=== PATIENT | male | born 2005 | race Two or more races ===

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

== ENCOUNTER 2025-05-04 23:28 | Emergency (ER) | payer BC ==
[~2025-05-04] VITALS: Ht 188 cm; Wt 93.1 kg
[2025-05-05] MEDS ORDERED: LET TOPICAL SOLN 5 ML TOP ONE
[2025-05-05] MEDS ORDERED: IBUP-1456 PO (00:21)
--- NOTE | 2025-05-05 00:21 | ED.PDOC ---
HPI Comments PT CAME TO THE ER WITH CC OF LEFT EYEBROW 1/2 IN LACERATION, BLEEDING WELL CONTROLLED, PT IS A&OX4 RR EVEN AND REGULAR NO DISTRESS NOTED AT THIS TIME. PT DENIES N/V/D, PAIN, VISION CHANGES, CP, OR SOB Chief Complaint: Laceration Time Seen by MD: 23:34 Reviewed Notes: Nurses Notes, Medications, Allergies Home Meds Active Scripts Ibuprofen (Ibuprofen) 800 Mg Tab, 800 MG PO Q8HP PRN for 7 Days, #21 TAB Prov:ROSANA CORDERO DIAL MAKER 05/05/25 Information Source: Patient Mode of Arrival: Ambulatory Complexity: Simple Laceration Length (cm): 3 Past Medical History PAST MEDICAL HISTORY: Denies Surgical History: Denies all surgeries Family History Family History: Unknown Social History Smoker: Non-Smoker Alcohol: Denies ETOH Use Drugs: Denies Drug Use All Other Systems: Reviewed and Negative (SEE HPI) Physical Exam General Appearance: No Apparent Distress, Normal HEENT: Head (NO TENDERNESS OR CREPITUS OVER BRIDGE OF NOSE OR LEFT PERIORBITAL ASPECT. NO NOTED EDEMA OR ECCHYMOSIS), Pharynx Normal, TMs Normal Neck: Full Range of Motion, Non-Tender Respiratory: Lungs Clear, No Respiratory Distress, Normal Breath Sounds Cardiovascular: No Edema, No JVD, No Murmur, No Gallop, Normal Peripheral Pulses, Regular Rate/Rhythm Breast Exam: Deferred Gastrointestinal: Non Tender, Soft Genitalia: Deferred Pelvic: Deferred Rectal: Deferred Extremities: Normal capillary refill, Normal range of motion Musculoskeletal : Apperance: Normal Neurologic: Alert, No Motor Deficits, Normal Affect, Normal Mood, No Sensory Deficits Cerebellar Function: Normal Reflexes: NOT DONE Skin: Dry, Lacerations (2.5 CM LACERATION TO LEFT UPPER EYE LID. NO OBVIOUS FB BLEEDING CONTROLLED ), Normal Color, Warm Lymphatic: No Adenopathy Was a procedure done? Was a procedure done?: Yes Sedation Sedation?: No Informed consent obtained: Yes Laceration Repair : Location LEFT UPPER EYELID Length 2.5 CM PARTIAL THICKNESS Anesthetic: Nothing Laceration Repair Prep: Saline, Manual Scrub Laceration Repair Wound Comple: epidermis/dermis repair Laceration Repair: Dermabond Informed consent obtained: Yes Risks, benefits, and alternati: Yes Differential diagnosis Generic Laceration: Fracture, Retained Foriegn Body, Neurovascular Injury X-Ray, Labs, Meds, VS Vital Signs Date Time Temp Pulse Resp B/P (MAP) Pulse Ox O2 Delivery O2 Flow Rate FiO2 05/05/25 00:03 98.4 107 16 120/76 96 98.4 X-Ray, Labs, Meds, VS Comment SEE PROCEDURE NOTE PATIENT REPORTED NO PAIN NO TENDERNESS ON EXAM OVER BRIDGE OF NOSE OR PERIORBITAL AREA ABOVE LEFT EYE REFUSED ANY IMAGING AT THIS TIME. SCRIPT TRIAL OF Motrin as needed for the pain per labeled dosing instructions. Advised to monitor for signs and symptoms of infection and uncontrolled bleeding return to the ER as indicated. PT indicate understanding and agree with discharge plan of care. Time of 1ST Reevaluation: 23:34 Reevaluation 1ST: Unchanged Time of 2ND Reevaluation: 00:19 Reevaluation 2ND: Improved Patient Education/Counseling: Diagnosis, Treatment, Need For Follow Up Family Education/Counseling: No Family Present Departure 1 Departure Time of Disposition: 00:19 Impression: Primary Impression: Eyelid laceration Qualified Codes: S01.112A - Laceration without foreign body of left eyelid and periocular area, initial encounter Disposition: HOME / SELF CARE / HOMELESS Condition: Stable e-Prescriptions Ibuprofen (Ibuprofen) 800 Mg Tab 800 MG PO Q8HP PRN for 7 Days, #21 TAB Prov: ROSANA CORDERO 05/05/25 Discharged With: Self Critical Care Note Critical Care Time?: No Stability Stability form required: ROSANA Peck May 05, 2025 00:21
[2025-05-05 00:25] VITALS: BP 123/78; PULSE 102; RESP 18; TEMP 98.5; O2SAT 98
== END 2025-05-05 00:25 | disposition home or self-care (01) ==
LOC: ER 23:28
DX: S01.112A Laceration without foreign body of left eyelid and periocular area, initial encounter (principal); Z79.899 Other long term (current) drug therapy; X58.XXXA Exposure to other specified factors, initial encounter; Y93.89 Activity, other specified; Y92.89 Other specified places as the place of occurrence of the external cause; Y99.8 Other external cause status
CPT/HCPCS: 12011; 99283; A4649